=== PATIENT | male | born 1985 | race Caucasian/White ===

== ENCOUNTER → 2023-07-16 10:00 | Outpatient (REF) | payer OTHER, SELFPAY ==
[2023-07-16 11:14] LABS: Hematocrit 42.9 % (39.0-52.0); Urine Albumin Trace (Neg - Trace); Urine Bilirubin Negative (Negative); Urine Character Clear (Clear); Urine Color Yellow; Urine Glucose Negative (Negative); Urine Ketone Negative (Negative); Urine Leukocyte Trace (Negative); Urine Nitrite Negative (Negative); Urine Occult Blood 3+ (Negative); Urine Urobilinogen Negative (Neg - 1+)
[2023-07-16 11:27] LABS: Urine Bacteria Few (Negative); Urine Red Blood Cell 26-30 /HPF (0-2)
[2023-07-16 12:14] LABS: Albumin 4.5 g/dl (3.5-5.0); Blood Urea Nitrogen 20 mg/dl (9-20); Calcium 9.7 mg/dl (8.4-10.2); Chloride 101 mmol/L (98-107); Glucose 100 mg/dl (70-99); Phosphorus 3.3 mg/dl (2.5-4.5); Potassium 4.2 mmol/L (3.5-5.1); Sodium 137 mmol/L (135-145); eGFR > 60.00
[2023-07-16 12:22] LABS: Carbon Dioxide 24 mmol/L (22-30)
[2023-07-16 12:24] LABS: Protein/creatinine Ratio 0.1; Urine Protein 17 mg/dl
[2023-07-17 10:25] LABS: Intact PTH 78.4 pg/ml (13.6-85.8)
== END ==
LOC: REG 10:00
PROVIDERS: ATTENDING PHYSICIAN Specialist; FAMILY PHYSICIAN Internal Medicine
DX: Q60.0 Renal agenesis, unilateral (principal); R80.1 Persistent proteinuria, unspecified; Z90.5 Acquired absence of kidney; E78.00 Pure hypercholesterolemia, unspecified
CPT/HCPCS: 36415; 80069; 81003; 81015; 82570; 83970; 84156; 85014; 85018

== ENCOUNTER → 2023-08-13 10:15 | Outpatient (REF) | payer OTHER, SELFPAY | LOC: RAD 10:15 | PROVIDERS: ATTENDING PHYSICIAN Urology; FAMILY PHYSICIAN Internal Medicine | DX: N13.5 Crossing vessel and stricture of ureter without hydronephrosis (principal) | CPT/HCPCS: 78707; A9539 ==

== ENCOUNTER → 2023-08-20 14:18 | Outpatient (REF) | payer OTHER, SELFPAY | LOC: RAD 14:18 | PROVIDERS: ATTENDING PHYSICIAN Urology; FAMILY PHYSICIAN Internal Medicine | DX: N13.39 Other hydronephrosis (principal); N13.5 Crossing vessel and stricture of ureter without hydronephrosis | CPT/HCPCS: 76770 ==

== ENCOUNTER 2023-09-17 07:16 | Outpatient (RCR) | payer OTHER, SELFPAY | END 2023-09-17 23:59 | disposition home or self-care (01) | LOC: RPT 07:16 | PROVIDERS: ATTENDING PHYSICIAN Urology; FAMILY PHYSICIAN Internal Medicine | DX: N39.8 Other specified disorders of urinary system (principal); R10.2 Pelvic and perineal pain; M62.81 Muscle weakness (generalized); R27.8 Other lack of coordination; M62.89 Other specified disorders of muscle; Z73.6 Limitation of activities due to disability | CPT/HCPCS: 97162; 97530 ==

== ENCOUNTER 2023-10-29 12:03 | Outpatient (RCR) | payer OTHER, SELFPAY | END 2023-10-29 23:59 | disposition home or self-care (01) | LOC: RPT 12:03 | PROVIDERS: ATTENDING PHYSICIAN Urology; FAMILY PHYSICIAN Internal Medicine | DX: N39.8 Other specified disorders of urinary system (principal); R10.2 Pelvic and perineal pain; M62.81 Muscle weakness (generalized); R27.8 Other lack of coordination; M62.89 Other specified disorders of muscle; Z73.6 Limitation of activities due to disability | CPT/HCPCS: 97110; 97140; 97530 ==

== ENCOUNTER 2023-11-28 10:42 | Outpatient (RCR) | payer OTHER, SELFPAY | END 2023-11-28 23:59 | disposition home or self-care (01) | LOC: RPT 10:42 | PROVIDERS: ATTENDING PHYSICIAN Urology; FAMILY PHYSICIAN Internal Medicine | DX: N39.8 Other specified disorders of urinary system (principal); R10.2 Pelvic and perineal pain; M62.81 Muscle weakness (generalized); R27.8 Other lack of coordination; Z73.6 Limitation of activities due to disability; M62.89 Other specified disorders of muscle | CPT/HCPCS: 97140; 97530 ==

== ENCOUNTER 2023-12-26 12:11 | Outpatient (RCR) | payer OTHER, SELFPAY | END 2023-12-26 23:59 | disposition home or self-care (01) | LOC: RPT 12:11 | PROVIDERS: ATTENDING PHYSICIAN Urology; FAMILY PHYSICIAN Internal Medicine | DX: N39.8 Other specified disorders of urinary system (principal); R10.2 Pelvic and perineal pain; M62.81 Muscle weakness (generalized); R27.8 Other lack of coordination; M62.89 Other specified disorders of muscle; Z73.6 Limitation of activities due to disability | CPT/HCPCS: 97140; 97530 ==

== ENCOUNTER 2024-01-16 13:05 | Outpatient (RCR) | payer OTHER, SELFPAY | END 2024-01-16 23:59 | disposition home or self-care (01) | LOC: RPT 13:05 | PROVIDERS: ATTENDING PHYSICIAN Urology; FAMILY PHYSICIAN Internal Medicine | DX: N39.8 Other specified disorders of urinary system (principal); R10.2 Pelvic and perineal pain; M62.81 Muscle weakness (generalized); R27.8 Other lack of coordination; Z73.6 Limitation of activities due to disability; M62.89 Other specified disorders of muscle | CPT/HCPCS: 97140; 97530 ==

== ENCOUNTER 2024-02-06 13:02 | Outpatient (RCR) | payer OTHER, SELFPAY | END 2024-02-06 23:59 | disposition home or self-care (01) | LOC: RPT 13:02 | PROVIDERS: ATTENDING PHYSICIAN Urology; FAMILY PHYSICIAN Internal Medicine | DX: N39.8 Other specified disorders of urinary system (principal); R10.2 Pelvic and perineal pain; M62.81 Muscle weakness (generalized); R27.8 Other lack of coordination; M62.89 Other specified disorders of muscle; Z73.6 Limitation of activities due to disability | CPT/HCPCS: 97530 ==

== ENCOUNTER 2024-03-05 12:56 | Outpatient (RCR) | payer OTHER, SELFPAY | END 2024-03-05 23:59 | disposition home or self-care (01) | LOC: RPT 12:56 | PROVIDERS: ATTENDING PHYSICIAN Urology; FAMILY PHYSICIAN Internal Medicine | DX: N39.8 Other specified disorders of urinary system (principal); R10.2 Pelvic and perineal pain; Z73.6 Limitation of activities due to disability; M62.81 Muscle weakness (generalized); R27.8 Other lack of coordination; M62.89 Other specified disorders of muscle | CPT/HCPCS: 97140; 97530 ==

== ENCOUNTER → 2024-03-19 10:19 | Outpatient (REF) | payer OTHER, SELFPAY ==
[2024-03-19 11:15] LABS: % Basophils 0.5 % (0-2); % Eosinophils 1.6 % (0-6); % Immature Granulocytes 0.3 % (0-0.5); % Lymphocytes 30.6 % (20.5-51.1); % Monocytes 7.3 % (1.7-9.3); % Neutrophils 59.7 % (42.2-75.2); Absolute Eosinophils 0.1 10^3/uL (0-0.7); Absolute Lymphocytes 1.2 10^3/uL (1.2-3.4); Absolute Monocytes 0.3 10^3/uL (0.1-0.6); Absolute Neutrophils 2.3 10^3/uL (1.4-6.5); Hematocrit 48.9 % (39.0-52.0); Mean Corp Hgb Conc. 34.8 g/dL (33.0-37.0); Mean Corpuscular Hgb 31.8 pg (27.0-31.0); Mean Corpuscular Volume 91.4 fL (80.0-94.0); Mean Platelet Volume 10.8 fL (7.4-10.4); Nucleated Red Blood Cells % 0 % (-); Platelet Count 211 10^3/uL (130-400); Red Blood Cell Count 5.35 10^6/uL (4.70-6.10); Red Cell Dist. Width 11.9 % (11.5-14.5); White Blood Cell Count 3.9 10^3/uL (4.8-10.8)
[2024-03-19 11:47] LABS: ALT (SGPT) 23 U/L (0-50); AST (SGOT) 32 U/L (17-59); Albumin 5.2 g/dl (3.5-5.0); Alkaline Phosphatase 71 U/L (38-126); Blood Urea Nitrogen 18 mg/dl (9-20); Calcium 9.8 mg/dl (8.4-10.2); Carbon Dioxide 29 mmol/L (22-30); Chloride 101 mmol/L (98-107); Glucose 95 mg/dl (70-99); HDL Cholesterol 80 mg/dl; LDL Cholesterol, Calculated 162 mg/dl; Potassium 4.2 mmol/L (3.5-5.1); Sodium 139 mmol/L (135-145); Total Cholesterol 254 mg/dl (50-199); Total Protein 8.1 g/dl (6.3-8.2); Triglyceride 60 mg/dl (10-149); Very Low Density Lipoprotein 12 mg/dl (0-30); eGFR > 60.00
[2024-03-19 12:17] LABS: TSH Reflex To Free T4 2.97 uIU/ml (0.47-4.68)
== END ==
LOC: REG 10:19
PROVIDERS: ATTENDING PHYSICIAN Internal Medicine
DX: Z00.00 Encounter for general adult medical examination without abnormal findings (principal); Z90.5 Acquired absence of kidney; Q60.0 Renal agenesis, unilateral; N11.0 Nonobstructive reflux-associated chronic pyelonephritis; Z87.448 Personal history of other diseases of urinary system; E78.00 Pure hypercholesterolemia, unspecified
CPT/HCPCS: 36415; 80053; 80061; 84443; 85025

== ENCOUNTER 2024-04-02 13:21 | Outpatient (RCR) | payer OTHER, SELFPAY | END 2024-04-02 23:59 | disposition home or self-care (01) | LOC: RPT 13:21 | PROVIDERS: ATTENDING PHYSICIAN Urology; FAMILY PHYSICIAN Internal Medicine | DX: N39.8 Other specified disorders of urinary system (principal); R10.2 Pelvic and perineal pain; Z73.6 Limitation of activities due to disability; M62.81 Muscle weakness (generalized); R27.8 Other lack of coordination; M62.89 Other specified disorders of muscle | CPT/HCPCS: 97110; 97140; 97530 ==

== ENCOUNTER → 2024-04-21 08:01 | Outpatient (REF) | payer OTHER, SELFPAY | LOC: RAD 08:01 | PROVIDERS: ATTENDING PHYSICIAN Urology; FAMILY PHYSICIAN Internal Medicine; REFERRING PHYSICIAN Specialist | DX: N39.8 Other specified disorders of urinary system (principal); N13.70 Vesicoureteral-reflux, unspecified; Z90.5 Acquired absence of kidney; R10.9 Unspecified abdominal pain | CPT/HCPCS: 76770 ==

== ENCOUNTER → 2024-04-24 09:06 | Outpatient (REF) | payer OTHER, SELFPAY ==
[2024-04-24 10:21] LABS: Blood Urea Nitrogen 21 mg/dl (9-20); Calcium 9.7 mg/dl (8.4-10.2); Carbon Dioxide 29 mmol/L (22-30); Chloride 98 mmol/L (98-107); Glucose 98 mg/dl (70-99); Potassium 4.2 mmol/L (3.5-5.1); Sodium 137 mmol/L (135-145); eGFR > 60.00
== END ==
LOC: REG 09:06
PROVIDERS: ATTENDING PHYSICIAN Urology; FAMILY PHYSICIAN Internal Medicine
DX: N13.70 Vesicoureteral-reflux, unspecified (principal); Z90.5 Acquired absence of kidney; R10.9 Unspecified abdominal pain
CPT/HCPCS: 36415; 80048

== ENCOUNTER 2024-05-07 09:03 | Outpatient (RCR) | payer OTHER, SELFPAY | END 2024-05-07 11:03 | disposition home or self-care (01) | LOC: RPT 09:03 | PROVIDERS: ATTENDING PHYSICIAN Urology; FAMILY PHYSICIAN Internal Medicine | DX: N39.8 Other specified disorders of urinary system (principal); R10.2 Pelvic and perineal pain; Z73.6 Limitation of activities due to disability; M62.81 Muscle weakness (generalized); R27.8 Other lack of coordination; M62.89 Other specified disorders of muscle | CPT/HCPCS: 97530 ==